=== PATIENT | female | born 1955 | race Caucasian/White ===

== ENCOUNTER 2020-05-11 12:13 | Emergency (ER) | payer SELFPAY ==
[~2020-05-11] VITALS: Ht 170.2 cm; Wt 56.7 kg
[2020-05-11 12:22] VITALS: BP 156/78
[2020-05-11] MEDS ORDERED: ACETAMINOPHEN EXTRA STRENGTH 500 MG TAB PO ONE (12:55)
== END 2020-05-11 16:15 | disposition home or self-care (01) ==
LOC: MED 12:13
DX: S60.212A Contusion of left wrist, initial encounter (principal); S70.02XA Contusion of left hip, initial encounter; S00.511A Abrasion of lip, initial encounter; M79.662 Pain in left lower leg; Y04.0XXA Assault by unarmed brawl or fight, initial encounter; Y93.89 Activity, other specified; Y92.89 Other specified places as the place of occurrence of the external cause; Y99.8 Other external cause status
CPT/HCPCS: 73110; 73130; 99284